=== PATIENT | female | born 1965 | race Caucasian/White ===

== ENCOUNTER 2020-07-29 18:27 | Emergency (ER) | payer OTHER ==
[~2020-07-29] VITALS: Ht 149.9 cm; Wt 63.5 kg
[2020-07-29 20:21] LABS: URINE BILIRUBIN NEGATIVE (Negative); URINE BLOOD 3+ (Negative); URINE CLARITY CLEAR; URINE COLOR YELLOW; URINE GLUCOSE-RANDOM NEGATIVE (Negative); URINE KETONES NEGATIVE (Negative); URINE LEUKOCYTES-REFLEX TRACE (Negative); URINE NITRITE-REFLEX NEGATIVE (Negative); URINE PROTEIN NEGATIVE (Negative); URINE SPECIFIC GRAVITY 1.015 (1.005-1.030); URINE UROBILINOGEN 0.2 E.U./dl (0.2-1.0)
[2020-07-29 20:27] LABS: CASTS None Seen /LPF (None Seen); CRYSTALS None Seen /LPF (None Seen); SQUAMOUS 0-3 Few /LPF (0-3); URINE RBC 0-2 Rare /HPF (0-2); URINE WBC-REFLEX 6-15 Few /HPF (0-5)
[2020-07-29] MEDS ORDERED: CIPRO500 M1 PO (21:30)
[2020-07-29] MEDS ORDERED: PHENAZOPYRIDIN200 M2 PO (21:30)
[2020-07-29 21:45] VITALS: BP 142/91
== END 2020-07-29 21:45 | disposition home or self-care (01) ==
LOC: M.ERS 18:27
PROVIDERS: Physician Assistant
DX: N39.0 Urinary tract infection, site not specified (principal)